=== PATIENT | male | born 1930 | race Caucasian/White ===

== ENCOUNTER 2017-01-28 12:33 | Day surgery (SDC) | payer MEDICARE, BC ==
[~2017-01-28] VITALS: Ht 179.1 cm; Wt 80.8 kg
[~2017-01-28 12:33] MED LIST: ANTIVERT 25MG25 MG PO; ASPIR-LOW81 MG PO; ASPIRIN 81M81 MG/TA2 PO; ASPIRIN E.C. 8181 MG PO; B COMPLEX1 TA4 PO; CALCIUM + D 6001 TA1 PO; CALTRATE-600 W600 MG PO; CENTRUM SILVER1 TA1 PO; CENTRUM1 TAB PO; COLACE 100100 MG/CAP PO; FISH OIL CONC1000 MG PO; FLOMAX 0.40.4 MG/CAP PO; GLUCOSAMINE/CHONDROI PO; INDERAL 10MG10 MG PO; LEVAQUIN 5500 MG/TAB PO; LIPITOR20 MG PO; LOPRESSOR 225 MG/TAB PO; NATURAL POTASS595 MG PO; NEURONTIN300 MG/CAP PO; NITROSTAT0.4 MG/TAB SL; NORCO 325 MG-51 TAB PO; OMEGA 31000 MG PO; PEPCID 20MG TAB20 MG PO; PHENERGAN 25 TA25 MG PO; PHENERGAN25 MG RC; PLAVIX 75MG TAB75 MG PO; POTASSIUM75 MG PO; RESTORIL30 MG PO; SENOKOT8.6 MG PO; ST. JOSEPH81 M2 PO; TEMAZEPAM30 MG PO; TOPROL XL 25MG25 MG PO; TYLENOL 500MG500 MG PO; TYLENOL EXTRA500 M1 PO; VEGETABLE LAXAT1 TAB PO; VITAMIN C500 MG PO; VITAMIN D PO; VITAMIN D1000 IU PO; VITAMIN D31000 IU PO; VITAMIN E-400200 IU PO; VITAMIN E1000 U/CAP PO
[2017-01-28 13:35] VITALS: BP 148/74; PULSE 67; TEMP 97.3
[2017-01-28] MEDS ORDERED: ASPIRIN 81M81 MG/TA2 PO (13:46)
[2017-01-28] MEDS ORDERED: STRESS FORMULA1 TA1 (13:47)
[2017-01-28] MEDS ORDERED: TOPROL XL 25MG25 MG PO (13:48)
[2017-01-28] MEDS ORDERED: PROTANDUM PO (13:50)
[2017-01-28] MEDS ORDERED: LIPITOR20 MG PO (13:53)
[2017-01-28] MEDS ORDERED: PERI-COLACE 501 TAB PO (13:54)
[2017-01-28 14:26] VITALS: BP 102/50; PULSE 76; TEMP 98.8
[2017-01-28] MEDS ORDERED: NORCO 325 MG-51 TAB PO (14:34)
[2017-01-28 14:45] VITALS: BP 118/58; PULSE 72
[2017-01-28 15:00] VITALS: BP 121/47; PULSE 82
== END 2017-01-28 16:00 | disposition home or self-care (01) ==
LOC: SDCO 12:33
DX: C44.529 Squamous cell carcinoma of skin of other part of trunk (principal)
CPT/HCPCS: J2704; J3010; J7120

== ENCOUNTER 2017-04-06 08:00 | Outpatient (RCR) | payer MEDICARE, BC ==
[~2017-04-06 08:00] MED LIST changes: +PERI-COLACE 501 TAB PO; +PROTANDUM PO; +STRESS FORMULA1 TA1
== END 2017-04-06 10:13 | disposition home or self-care (01) ==
LOC: WSPT 08:00
DX: M25.561 Pain in right knee (principal); M25.562 Pain in left knee
CPT/HCPCS: G8978-GP; G8979-GP; G8980-GP

== ENCOUNTER → 2017-05-05 | Outpatient (CLI) | payer MEDICARE, BC ==
[~2017-05-05] MED LIST changes: +NEW BP MED; +[UNRECOGNIZED DRUG - REMARK]
[2017-05-05 17:26] LABS: HEMATOCRIT 44.2 % (42.0-52.0); HEMOGLOBIN 13.7 g/dl (13.5-18.0); MEAN CELL VOLUME 87 fl (80.0-100.0); MEAN CORPUSCULAR HEMOGLOBIN 27 pg (27.0-31.0); MEAN CORPUSCULAR HGB CONC 31 g/dl (33.0-37.0); PLATELET COUNT 197 K/mm3 (130-400); RED BLOOD COUNT 5.09 M/mm3 (4.20-5.60); REDCELL DISTRIBUTION WIDTH-CV 14.2 % (11.5-14.5); WHITE BLOOD COUNT 5.9 K/mm3 (4.8-10.8)
[2017-05-05 17:45] LABS: ERYTHROCYTE SEDIMENTATION RATE 1 mm/hr (0-30)
== END ==
LOC: COL.LAB 16:35
PROVIDERS: Orthopaedic Surgery
DX: Z96.651 Presence of right artificial knee joint (principal)

== ENCOUNTER 2017-06-12 15:53 | Emergency (ER) | payer MEDICARE, BC ==
[~2017-06-12] VITALS: Ht 180.3 cm; Wt 81.8 kg
[~2017-06-12 15:53] MED LIST changes: -NEW BP MED; -[UNRECOGNIZED DRUG - REMARK]
[2017-06-12 15:57] VITALS: TEMP 97.9
[2017-06-12] MEDS ORDERED: NEW BP MED (16:24)
[2017-06-12] MEDS ORDERED: [UNRECOGNIZED DRUG - REMARK] (16:52)
[2017-06-12 16:58] LABS: CALCIUM 9.1 mg/dL (8.4-10.2); CREATININE, serum 0.95 mg/dL (0.66-1.25); POTASSIUM 4.1 mmol/L (3.4-5.0)
[2017-06-12 18:02] VITALS: BP 108/56; PULSE 78
== END 2017-06-12 18:04 | disposition home or self-care (01) ==
LOC: COL.ER 15:53
PROVIDERS: Emergency Medicine
DX: R53.1 Weakness (principal); I10 Essential (primary) hypertension; R42 Dizziness and giddiness
CPT/HCPCS: J7040

== ENCOUNTER → 2017-07-01 | Outpatient (CLI) | payer MEDICARE, BC ==
[~2017-07-01] MED LIST changes: +NEW BP MED; +[UNRECOGNIZED DRUG - REMARK]
== END ==
LOC: COL.VAS 14:19
DX: R59.0 Localized enlarged lymph nodes (principal); R60.0 Localized edema

== ENCOUNTER → 2017-09-16 | Outpatient (CLI) | payer MEDICARE, BC | LOC: COL.RAD 15:19 | DX: S09.90XA Unspecified injury of head, initial encounter (principal); H53.8 Other visual disturbances; R41.840 Attention and concentration deficit ==

== ENCOUNTER 2017-10-04 08:17 | Emergency (ER) | payer MEDICARE, BC ==
[~2017-10-04] VITALS: Ht 177.8 cm; Wt 81.8 kg
[2017-10-04] MEDS ORDERED: MYRBETR25MG PO (09:18)
[2017-10-04] MEDS ORDERED: PRINIVIL2.5 MG PO (09:18)
[2017-10-04 09:50] VITALS: BP 135/72; PULSE 64; TEMP 98.6
== END 2017-10-04 10:02 | disposition home or self-care (01) ==
LOC: COL.ER 08:17
DX: S86.912A Strain of unspecified muscle(s) and tendon(s) at lower leg level, left leg, initial encounter (principal); I10 Essential (primary) hypertension; E78.5 Hyperlipidemia, unspecified; N40.0 Benign prostatic hyperplasia without lower urinary tract symptoms; Z79.82 Long term (current) use of aspirin; W18.40XA Slipping, tripping and stumbling without falling, unspecified, initial encounter; Y92.481 Parking lot as the place of occurrence of the external cause

== ENCOUNTER 2018-04-01 11:15 | Outpatient (RCR) | payer MEDICARE, BC ==
[~2018-04-01 11:15] MED LIST changes: +MYRBETR25MG PO; +PRINIVIL2.5 MG PO
== END 2018-04-03 | disposition home or self-care (01) ==
LOC: WSPT
DX: M19.90 Unspecified osteoarthritis, unspecified site (principal)
CPT/HCPCS: G8978-GP; G8979-GP

== ENCOUNTER 2018-04-30 19:33 | Emergency (ER) | payer MEDICARE, BC ==
[~2018-04-30] VITALS: Ht 177.8 cm; Wt 79.5 kg
[2018-04-30 19:35] VITALS: BP 136/71; PULSE 82; TEMP 98.1
== END 2018-04-30 20:30 | disposition home or self-care (01) ==
LOC: COL.ER 19:33
DX: H61.23 Impacted cerumen, bilateral (principal)

== ENCOUNTER 2018-05-15 22:37 | Emergency (ER) | payer MEDICARE, BC ==
[~2018-05-15] VITALS: Ht 177.8 cm; Wt 79.5 kg
[2018-05-15 22:42] VITALS: TEMP 97.8
[2018-05-15 23:33] LABS: BASO % 0.5 % (0.0-2.0); EOS # 0.3 (0.0-0.7); EOS % 4.5 % (0-4.0); GRAN # 3.3 (1.4-6.5); GRAN % 52.4 % (42.2-75.2); HEMATOCRIT 42.5 % (42.0-52.0); HEMOGLOBIN 13.3 g/dl (13.5-18.0); LYMPH # 1.7 (1.2-3.4); LYMPH % 26.6 % (20.0-51.0); MEAN CELL VOLUME 85 fl (80.0-100.0); MEAN CORPUSCULAR HEMOGLOBIN 27 pg (27.0-31.0); MEAN CORPUSCULAR HGB CONC 31 g/dl (33.0-37.0); MEAN PLATELET VOLUME 10.8 fl (7.4-10.4); MONO % 15.5 % (1.7-9.3); PLATELET COUNT 214 K/mm3 (130-400); RED BLOOD COUNT 4.99 M/mm3 (4.20-5.60); REDCELL DISTRIBUTION WIDTH-CV 13.8 % (11.5-14.5)
[2018-05-15 23:39] LABS: INR 1.1 (0.8-3.0)
[2018-05-16 00:05] LABS: ALANINE AMINOTRANSFERASE 28 U/L (21-72); ALBUMIN 3.5 gm/dL (3.5-5.0); ALKALINE PHOSPHATASE 98 U/L (50-136); ANION GAP 10 mmol/L (7-16); AST,SGOT 32 U/L (15-37); BILIRUBIN,TOTAL 0.6 mg/dL (0.0-1.0); BLOOD UREA NITROGEN 19 mg/dL (9-20); CALCIUM 8.9 mg/dL (8.4-10.2); CARBON DIOXIDE 26 mmol/L (22-30); CHLORIDE 102 mmol/L (98-107); CREATININE, serum 0.88 mg/dL (0.66-1.25); GLUCOSE 87 mg/dL (74-106); POTASSIUM 4.1 mmol/L (3.4-5.0); SODIUM 139 mmol/L (137-145); TOTAL PROTEIN 6.7 gm/dL (6.4-8.2)
[2018-05-16 00:17] LABS: TROPONIN-I < 0.012 ng/mL (0.000-0.034)
[2018-05-16 01:09] VITALS: BP 123/60; PULSE 67
== END 2018-05-16 01:20 | disposition home or self-care (01) ==
LOC: COL.ER 22:37
PROVIDERS: Emergency Medicine
DX: R42 Dizziness and giddiness (principal); I10 Essential (primary) hypertension; I48.91 Unspecified atrial fibrillation; E78.5 Hyperlipidemia, unspecified; N40.0 Benign prostatic hyperplasia without lower urinary tract symptoms; Z98.890 Other specified postprocedural states; Z79.82 Long term (current) use of aspirin

== ENCOUNTER → 2018-05-24 | Outpatient (CLI) | payer MEDICARE, BC | LOC: COL.RAD 08:14 | DX: G31.89 Other specified degenerative diseases of nervous system (principal) | CPT/HCPCS: A9585 ==

== ENCOUNTER 2018-06-03 09:45 | Outpatient (RCR) | payer MEDICARE, BC | END 2018-07-10 | disposition home or self-care (01) | LOC: WSPT | DX: R29.898 Other symptoms and signs involving the musculoskeletal system (principal); R27.0 Ataxia, unspecified | CPT/HCPCS: G8978-GP; G8979-GP ==

== ENCOUNTER → 2018-09-16 | Outpatient (CLI) | payer MEDICARE, BC ==
[2018-09-16 10:21] LABS: HEMATOCRIT 42.5 % (42.0-52.0); HEMOGLOBIN 13.3 g/dl (13.5-18.0); MEAN CELL VOLUME 88 fl (80.0-100.0); MEAN CORPUSCULAR HEMOGLOBIN 27 pg (27.0-31.0); MEAN CORPUSCULAR HGB CONC 31 g/dl (33.0-37.0); MEAN PLATELET VOLUME 10.6 fl (7.4-10.4); PLATELET COUNT 181 K/mm3 (130-400); RED BLOOD COUNT 4.85 M/mm3 (4.20-5.60); REDCELL DISTRIBUTION WIDTH-CV 13.2 % (11.5-14.5)
[2018-09-16 10:29] LABS: INR 1.2 (0.8-3.0); PROTHROMBIN TIME 13.5 SECONDS (9.7-12.8)
[2018-09-16 10:37] LABS: CALCIUM 8.6 mg/dL (8.4-10.2); CREATININE, serum 0.75 mg/dL (0.66-1.25); POTASSIUM 4.5 mmol/L (3.4-5.0)
== END ==
LOC: COL.LAB 09:40
PROVIDERS: Internal Medicine Interventional Cardiology
DX: I49.5 Sick sinus syndrome (principal)

== ENCOUNTER → 2018-09-21 | Outpatient (CLI) | payer MEDICARE, BC | LOC: COL.RAD 09:58 | DX: J98.6 Disorders of diaphragm (principal); Z95.0 Presence of cardiac pacemaker ==

== ENCOUNTER → 2018-11-08 | Outpatient (CLI) | payer MEDICARE, BC | LOC: COL.RAD 13:22 | DX: J84.10 Pulmonary fibrosis, unspecified (principal); M46.94 Unspecified inflammatory spondylopathy, thoracic region; J98.6 Disorders of diaphragm; Z95.0 Presence of cardiac pacemaker | CPT/HCPCS: Q9967 ==

== ENCOUNTER 2019-03-22 11:14 | Outpatient (RCR) | payer MEDICARE, BC | END 2019-06-08 15:09 | disposition home or self-care (01) | LOC: MKS.ESL.PT 11:14 | DX: M25.561 Pain in right knee (principal); M25.562 Pain in left knee; Z96.651 Presence of right artificial knee joint ==

== ENCOUNTER → 2019-04-28 | Outpatient (CLI) | payer MEDICARE, BC | LOC: COL.RAD 07:58 | DX: S76.012A Strain of muscle, fascia and tendon of left hip, initial encounter (principal) ==

== ENCOUNTER 2019-06-23 18:54 | Emergency (ER) | payer MEDICARE, BC ==
[~2019-06-23] VITALS: Ht 177.8 cm; Wt 79.5 kg
[2019-06-23 18:59] VITALS: TEMP 97.5
[2019-06-23 19:19] LABS: BASO % 0.4 % (0.0-2.0); EOS # 0.3 (0.0-0.7); EOS % 3.9 % (0-4.0); GRAN # 4.4 (1.4-6.5); GRAN % 63.1 % (42.2-75.2); HEMATOCRIT 42.3 % (42.0-52.0); LYMPH # 1.4 (1.2-3.4); LYMPH % 20.4 % (20.0-51.0); MEAN CELL VOLUME 87 fl (80.0-100.0); MEAN CORPUSCULAR HEMOGLOBIN 27 pg (27.0-31.0); MEAN CORPUSCULAR HGB CONC 31 g/dl (33.0-37.0); MEAN PLATELET VOLUME 11.1 fl (7.4-10.4); MONO # 0.8 (0.1-0.6); MONO % 12.1 % (1.7-9.3); PLATELET COUNT 178 K/mm3 (130-400); RED BLOOD COUNT 4.88 M/mm3 (4.20-5.60); REDCELL DISTRIBUTION WIDTH-CV 13.3 % (11.5-14.5)
[2019-06-23 19:34] LABS: ALANINE AMINOTRANSFERASE 20 U/L (21-72); ALBUMIN 3.9 gm/dL (3.5-5.0); ALKALINE PHOSPHATASE 102 U/L (50-136); ANION GAP 8 mmol/L (7-16); AST,SGOT 34 U/L (15-37); BILIRUBIN,TOTAL 0.8 mg/dL (0.0-1.0); BLOOD UREA NITROGEN 14 mg/dL (9-20); CARBON DIOXIDE 29 mmol/L (22-30); CHLORIDE 105 mmol/L (98-107); GLUCOSE 91 mg/dL (74-106); POTASSIUM 4.2 mmol/L (3.4-5.0); SODIUM 141 mmol/L (137-145); TOTAL PROTEIN 6.9 gm/dL (6.4-8.2)
[2019-06-23 19:37] LABS: C-REACTIVE PROTEIN 0.5 mg/dL (0.0-0.9)
[2019-06-23 19:43] LABS: TROPONIN-I < 0.012 ng/mL (0.000-0.035)
[2019-06-23 20:48] LABS: COLLECTION METHOD CLEAN CATCH
[2019-06-23 21:04] LABS: MUCOUS Present /lpf; PH 5 (5-8); SQUAMOUS EPITHELIAL None Seen /hpf; URINE APPEARANCE Hazy; URINE BACTERIA None Seen /hpf; URINE BILIRUBIN Negative (NEGATIVE); URINE BLOOD Negative (NEGATIVE); URINE COLOR Yellow; URINE GLUCOSE Negative (NEGATIVE); URINE KETONE Negative (NEGATIVE); URINE LEUKOCYTE ESTERASE Negative (NEGATIVE); URINE NITRATE Negative (NEGATIVE); URINE PROTEIN(semi-quant) Negative (NEGATIVE); URINE RBC 0-2 /hpf; URINE UROBILINOGEN Negative (NEGATIVE)
[2019-06-23 21:23] VITALS: BP 151/87; PULSE 85
== END 2019-06-23 21:21 | disposition home or self-care (01) ==
LOC: COL.ER 18:54
PROVIDERS: Emergency Medicine
DX: R53.1 Weakness (principal); R42 Dizziness and giddiness; I48.91 Unspecified atrial fibrillation; I10 Essential (primary) hypertension; E78.00 Pure hypercholesterolemia, unspecified; Z95.0 Presence of cardiac pacemaker; Z79.01 Long term (current) use of anticoagulants; Z79.82 Long term (current) use of aspirin
CPT/HCPCS: J7030

== ENCOUNTER 2019-11-17 20:37 | Emergency (ER) | payer MEDICARE, BC ==
[~2019-11-17] VITALS: Ht 177.8 cm; Wt 78.6 kg
[2019-11-17 22:28] LABS: BASO % 0.3 % (0.0-2.0); EOS # 0.1 (0.0-0.7); EOS % 0.9 % (0-4.0); GRAN # 7.2 (1.4-6.5); GRAN % 73.8 % (42.2-75.2); HEMATOCRIT 41.3 % (42.0-52.0); HEMOGLOBIN 12.6 g/dl (13.5-18.0); LYMPH # 0.9 (1.2-3.4); LYMPH % 9.4 % (20.0-51.0); MEAN CELL VOLUME 87 fl (80.0-100.0); MEAN CORPUSCULAR HEMOGLOBIN 27 pg (27.0-31.0); MEAN CORPUSCULAR HGB CONC 31 g/dl (33.0-37.0); MEAN PLATELET VOLUME 10.4 fl (7.4-10.4); MONO # 1.5 (0.1-0.6); MONO % 15.3 % (1.7-9.3); PLATELET COUNT 225 K/mm3 (130-400); RED BLOOD COUNT 4.73 M/mm3 (4.20-5.60); REDCELL DISTRIBUTION WIDTH-CV 13.2 % (11.5-14.5)
[2019-11-17 22:36] LABS: ALBUMIN 3.9 gm/dL (3.5-5.0); BILIRUBIN,TOTAL 0.7 mg/dL (0.0-1.0); CALCIUM 8.9 mg/dL (8.4-10.2); CREATININE, serum 0.99 (0.66-1.25); POTASSIUM 4.4 mmol/L (3.4-5.0); TOTAL PROTEIN 7.2 gm/dL (6.4-8.2)
[2019-11-17 22:48] LABS: C-REACTIVE PROTEIN 16.9 mg/dL (0.0-0.9)
[2019-11-18 02:14] LABS: COLLECTION METHOD CLEAN CATCH
[2019-11-18 02:19] LABS: MUCOUS Present /lpf; PH 5 (5-8); SQUAMOUS EPITHELIAL None Seen /hpf; URINE APPEARANCE Clear; URINE BACTERIA None Seen /hpf; URINE BILIRUBIN Negative (NEGATIVE); URINE BLOOD Negative (NEGATIVE); URINE COLOR Yellow; URINE GLUCOSE Negative (NEGATIVE); URINE KETONE Trace (NEGATIVE); URINE LEUKOCYTE ESTERASE Negative (NEGATIVE); URINE NITRATE Negative (NEGATIVE); URINE PROTEIN(semi-quant) Negative (NEGATIVE); URINE RBC 0-2 /hpf; URINE UROBILINOGEN Negative (NEGATIVE)
[2019-11-18 02:30] VITALS: BP 100/56; PULSE 84; TEMP 97.6
[2019-11-18] MEDS ORDERED: TESSALON P100 MG/CAP PO (02:34)
== END 2019-11-18 02:30 | disposition home or self-care (01) ==
LOC: COL.ER 20:37
PROVIDERS: Physician Assistant
DX: J11.1 Influenza due to unidentified influenza virus with other respiratory manifestations (principal); I10 Essential (primary) hypertension; E78.5 Hyperlipidemia, unspecified; I25.10 Atherosclerotic heart disease of native coronary artery without angina pectoris; Z79.82 Long term (current) use of aspirin; Z86.73 Personal history of transient ischemic attack (TIA), and cerebral infarction without residual deficits; Z95.0 Presence of cardiac pacemaker; Z96.651 Presence of right artificial knee joint
CPT/HCPCS: J7030

== ENCOUNTER 2020-05-01 09:52 | Outpatient (RCR) | payer MEDICARE, BC ==
[~2020-05-01 09:52] MED LIST changes: +TESSALON P100 MG/CAP PO
== END 2020-07-30 ==
LOC: WSPT
DX: M25.561 Pain in right knee (principal); M25.562 Pain in left knee

== ENCOUNTER 2020-08-22 07:08 | Inpatient (IN) | payer MEDICARE, BC ==
[~2020-08-22] VITALS: Ht 180.3 cm; Wt 87.2 kg
[2020-08-22 07:38] LABS: BASO % 0.2 % (0.0-2.0); EOS # 0.1 (0.0-0.7); EOS % 0.7 % (0-4.0); GRAN # 14.2 (1.4-6.5); GRAN % 83.8 % (42.2-75.2); HEMATOCRIT 44.6 % (42.0-52.0); HEMOGLOBIN 13.4 g/dl (13.5-18.0); LYMPH # 1.2 (1.2-3.4); LYMPH % 6.9 % (20.0-51.0); MEAN CELL VOLUME 85 fl (80.0-100.0); MEAN CORPUSCULAR HEMOGLOBIN 26 pg (27.0-31.0); MEAN CORPUSCULAR HGB CONC 30 g/dl (33.0-37.0); MEAN PLATELET VOLUME 10.2 fl (7.4-10.4); MONO # 1.3 (0.1-0.6); MONO % 7.9 % (1.7-9.3); PLATELET COUNT 242 K/mm3 (130-400); RED BLOOD COUNT 5.25 M/mm3 (4.20-5.60)
[2020-08-22 08:20] LABS: ALANINE AMINOTRANSFERASE 20 U/L (4-49); ALBUMIN 4.3 gm/dL (3.5-5.0); ALKALINE PHOSPHATASE 114 U/L (50-136); ANION GAP 10 mmol/L (7-16); AST,SGOT 63 U/L (15-37); BILIRUBIN,TOTAL 1.1 mg/dL (0.0-1.0); BLOOD UREA NITROGEN 19 mg/dL (9-20); C-REACTIVE PROTEIN 0.8 mg/dL (0.0-0.9); CALCIUM 9.4 mg/dL (8.4-10.2); CARBON DIOXIDE 29 mmol/L (22-30); CHLORIDE 101 mmol/L (98-107); CREATININE, serum 1.05 (0.66-1.25); GLUCOSE 164 mg/dL (74-106); POTASSIUM 4.2 mmol/L (3.4-5.0); SODIUM 140 mmol/L (137-145); TOTAL PROTEIN 7.5 gm/dL (6.4-8.2)
[2020-08-22 08:30] LABS: TROPONIN-I < 0.012 ng/mL (0.000-0.035)
[2020-08-22 12:08] VITALS: BP 162/86; PULSE 78; TEMP 97.8
--- NOTE | 2020-08-22 12:11 | NUR ---
Patient up to room 347 by jorge, ambulated to bed with x 1 assist. Oriented to room. Denies further needs at this time. Assessment complete.
--- NOTE | 2020-08-22 14:50 | NUR ---
Manager Maritime met with patient to discuss discharge planning. Patient lives alone in [place] and sees Dr. Vivas for primary care. Patient has medications mailed to his home by the [facility] and also utilizes [facility] pharmacy as needed. Patient has a cane and walker at home but reports he doesn't normally use those. Patient has [facility] located [facility] which designates his brother Volodymyr (ph#[phone]), his daughter Carmencita Kirby (ph#[phone]) and his other daughter, Maxine (ph#[phone]). Patient is normally independent with ADLS and plans to return home at discharge. SW will continue to follow as needed.
[2020-08-22] MEDS ORDERED: RESTORIL30 MG PO (15:36)
[2020-08-22] MEDS ORDERED: SENOKOT8.6 MG PO (15:37)
[2020-08-22] MEDS ORDERED: ELIQUIS 5MG PO (15:38)
[2020-08-22] MEDS ORDERED: TYLENOL 500MG500 MG PO (15:39)
[2020-08-22] MEDS ORDERED: VITAMINC1000TA (15:39)
[2020-08-22] MEDS ORDERED: PACERONE100 MG PO (15:40)
[2020-08-22 16:02] VITALS: BP 138/62; PULSE 83; TEMP 97.8
--- NOTE | 2020-08-22 18:07 | NUR ---
Patient doing well this afternoon. Has requested pain medication for abd pain, medications given per orders. Dr. Arroyo in to see patient this afternoon. Assisted patient to recliner, x 1 assist. Patient states he feels weak when getting up out of bed. Fluids continue infusing per orders. Denies further needs at this time. Will report off to rehab tech.
[2020-08-22 19:42] VITALS: BP 154/70; PULSE 83; TEMP 98.7
--- NOTE | 2020-08-22 21:00 | NUR ---
Resting in bed. Assessment complete. Bases diminshed bilaterally otherwise clear. Heart sounds normal. Bowels active x4. Pulses present throughout. No edema noted. IV left AC infusing without complications. Reports 05/31 ABD pain. Provided with PRN morphine. Denies other needs. Call light in reach. Respiratory started on 2 liters nasal cannula for saturations high 80s after ambulation.
--- NOTE | 2020-08-22 23:41 | NUR ---
Resting in bed. Reported 7/10 ABD pain. Given PRN morphine. Denies needs. Call light in reach.
[2020-08-22 23:51] VITALS: BP 152/67; PULSE 83; TEMP 98.5
--- NOTE | 2020-08-23 01:59 | NUR ---
Patient asleep in bed with no signs of discomfort. Will assess pain once awake.
--- NOTE | 2020-08-23 02:50 | NUR ---
Patient incontinent of urine. Cares provided. Reported nausea and ABD pain 4/10. Given PRN morphine and zofran. Denies other needs. Will monitor.
[2020-08-23 04:00] VITALS: BP 130/59; PULSE 85; TEMP 98.5
--- NOTE | 2020-08-23 04:57 | NUR ---
Resting in bed. Denies needs. Call light in reach.
--- NOTE | 2020-08-23 06:13 | NUR ---
Patient required x3 doses of morphine and x1 dose of zofran with schedule tylenol for pain control. Otherwise uneventful night. Resting in bed this AM. Call light in reach.
--- NOTE | 2020-08-23 06:43 | NUR ---
Report given to ALEXIA Diaz
[2020-08-23 07:15] LABS: HEMATOCRIT 44.4 % (42.0-52.0); HEMOGLOBIN 13.5 g/dl (13.5-18.0); MEAN CELL VOLUME 84 fl (80.0-100.0); MEAN CORPUSCULAR HEMOGLOBIN 26 pg (27.0-31.0); MEAN CORPUSCULAR HGB CONC 30 g/dl (33.0-37.0); MEAN PLATELET VOLUME 11.2 fl (7.4-10.4); PLATELET COUNT 221 K/mm3 (130-400); RED BLOOD COUNT 5.26 M/mm3 (4.20-5.60); REDCELL DISTRIBUTION WIDTH-CV 14.5 % (11.5-14.5)
[2020-08-23 07:21] LABS: ALBUMIN 3.6 gm/dL (3.5-5.0); CALCIUM 8.7 mg/dL (8.4-10.2); CREATININE, serum 1.01 (0.66-1.25); POTASSIUM 4.4 mmol/L (3.4-5.0); TOTAL PROTEIN 6.4 gm/dL (6.4-8.2)
[2020-08-23 07:31] VITALS: BP 128/58; PULSE 65; TEMP 98.8
--- NOTE | 2020-08-23 07:50 | NUR ---
Notified hospitalist of increased WBC.
[2020-08-23 07:54] LABS: BAND 15 % (0-10); LYMPHOCYTE 2 % (20.0-51.0); NEUTROPHILS 78 % (42.0-75.2); PLATELET ESTIMATE NORMAL (NORMAL); SCHISTOCYTES 1+
--- NOTE | 2020-08-23 07:59 | NUR ---
Patient in bed. Appears flushed, requested pain medicine for abd pain 03/31, medications given per orders. Alert and oriented x 3. Assessment complete. SCDs to BLE. Patient states he feels better than he did yesterday. Rechecked temp at 98.1. Patient denies further needs at this time. Will continue to monitor.
--- NOTE | 2020-08-23 08:49 | NUR ---
Radiology in for abd US.
--- NOTE | 2020-08-23 10:17 | NUR ---
Dr. Barcenas and care team in to see patient.
--- NOTE | 2020-08-23 10:56 | NUR ---
Henna LARA student in to see patient, provided with boone and maurisio garcia
[2020-08-23 12:00] VITALS: BP 121/55; PULSE 73; TEMP 98.4
--- NOTE | 2020-08-23 15:48 | NUR ---
Patient up to recliner, denies pain at this time. Denies further needs at this time.
[2020-08-23 16:24] VITALS: BP 130/64; PULSE 85; TEMP 98
--- NOTE | 2020-08-23 18:11 | NUR ---
Patient has done well throughout the day, states he feels weak today. Bother at bedside this afternoon. Fluids continue infusing per orders. Has been up to recliner this afternoon, encouraged patient to increase activity. Denies pain when sitting up in recliner. Denies further needs at this time. Will report off to roll plugger machine operator.
--- NOTE | 2020-08-23 19:00 | NUR ---
Received report from Keri RN's. Pt currently lying in bed. Pt was having some pain but was given pain medication. Pt has his call light within reach and his bed is in lowest position.
[2020-08-23 20:00] VITALS: BP 134/63; PULSE 83; TEMP 98
[2020-08-24] VITALS (9 sets, daily range): BP systolic 105–134; BP diastolic 47–89; PULSE 75–107; TEMP 97.8–98.3
--- NOTE | 2020-08-24 04:49 | NUR ---
Received a call from Telemetry. Pt heart rate was as high as 154. Pt was sleeping in bed. Pt vitals at this time is 111/67 and his heart rate is 139. Geovanna the hospitalist has been notified and she wants an EKG ordered at this time. Pt is currently resting in bed and has his call light within reach. I am currently at pt bed side he has no complaints of pain or discomfort at this time.
--- NOTE | 2020-08-24 05:58 | NUR ---
ICU Nurse Kelley currently in with pt. Pt vitals are being monitored and Geovanna the hospitalist has been notified.
--- NOTE | 2020-08-24 06:23 | NUR ---
Pt was given his scheduled dose of Tylenol and his Lopresor. Pt is currently resting in bed. Pt has no complaints of chest pain, dizziness or pain. Pt was given a warm blanket, pt stated that he is very comfortable in bed. ICU nurse Kelley was able to get his heart reate in the low 100's. Pt was pleased with knowing that his heart rate was lower.
[2020-08-24 09:09] LABS: BASO % 0.2 % (0.0-2.0); EOS % 0.1 % (0-4.0); GRAN # 19.3 (1.4-6.5); GRAN % 89.6 % (42.2-75.2); HEMATOCRIT 42.2 % (42.0-52.0); LYMPH # 0.6 (1.2-3.4); LYMPH % 2.7 % (20.0-51.0); MEAN CELL VOLUME 85 fl (80.0-100.0); MEAN CORPUSCULAR HEMOGLOBIN 26 pg (27.0-31.0); MEAN CORPUSCULAR HGB CONC 31 g/dl (33.0-37.0); MEAN PLATELET VOLUME 11.7 fl (7.4-10.4); MONO # 1.5 (0.1-0.6); MONO % 6.8 % (1.7-9.3); PLATELET COUNT 190 K/mm3 (130-400); RED BLOOD COUNT 4.95 M/mm3 (4.20-5.60); REDCELL DISTRIBUTION WIDTH-CV 14.7 % (11.5-14.5)
[2020-08-24 09:21] LABS: ALBUMIN 3.2 gm/dL (3.5-5.0); CALCIUM 8.5 mg/dL (8.4-10.2); CREATININE, serum 0.9 (0.66-1.25); POTASSIUM 4.1 mmol/L (3.4-5.0); TOTAL PROTEIN 5.9 gm/dL (6.4-8.2)
--- NOTE | 2020-08-24 10:14 | NUR ---
Assessment completed, alert/oriented, vital signs stable, reports pain is improved and mild this morning, abdomen is a little distended, BS+, heart irregular/ patient went into A.fib RVR overnight, Hospitalist managed medically and consulted cardiology, HR 100-130 this morning and they are aware of this, patient is asymptomatic at [facility], WBC imrpoving, plan of care discussed with Patient/family/hospitalist/SX and Cardiology
--- NOTE | 2020-08-24 19:10 | NUR ---
Received report from Neil. Seen patient awake, lying in bed. With O2 at 1lpm via NC. With IV on left AC infusing D5LR at 75ml/hr. He denies pain. He is alert and oriented. Heart rate now was at 80's. Call light within reach.
--- NOTE | 2020-08-24 20:54 | NUR ---
Informed patient that Dr. Arroyo ordered NPO midnight. He's asking if he will have the procedure tomorrow. Informed him that there are no orders yet and maybe they will see how he goes well tonight and they will decide on in the morning. Patient verbalizes understanding. He denies pain. He states his pain was at 1/10.
--- NOTE | 2020-08-24 23:00 | NUR ---
Razia BHATT called this nurse saying that the patient had an unwitnessed fall. Upon entering his room patient was sitting on the floor on the right side of the bed. Patient states he was trying to go the the restroom. His urinal was on the bedside. He denies hitting his head. He is alert and oriented. Noted to have small abrasion on his right hand. Placed gaitbelt and helped patient stand up and get back to bed. His pants and briefs are wet. He refuses to put back a new briefs but we changed his pants.
--- NOTE | 2020-08-24 23:44 | NUR ---
Post fall vital signs were taken. Informed Geovanna BERNARD via phone call that patient had unwitnessed fall and that he denies hitting his bed. Fall protocol initiated. Bed alarm was placed awhile ago. Instructed patient he needs to call us if he needs to go up and go to the bathroom.
[2020-08-25] VITALS (12 sets, daily range): BP systolic 89–166; BP diastolic 50–91; PULSE 72–90; TEMP 97.7–98.6
--- NOTE | 2020-08-25 05:51 | NUR ---
Patient had no episode of Tachycardia overnight. He denies pain. Maintained on NPO. Bed alarm on. Call light within reach.
[2020-08-25 06:44] LABS: HEMOGLOBIN 11.7 g/dl (13.5-18.0); MEAN CELL VOLUME 85 fl (80.0-100.0); MEAN CORPUSCULAR HEMOGLOBIN 26 pg (27.0-31.0); MEAN CORPUSCULAR HGB CONC 31 g/dl (33.0-37.0); MEAN PLATELET VOLUME 11.3 fl (7.4-10.4); PLATELET COUNT 169 K/mm3 (130-400); RED BLOOD COUNT 4.49 M/mm3 (4.20-5.60); REDCELL DISTRIBUTION WIDTH-CV 14.6 % (11.5-14.5)
[2020-08-25 06:58] LABS: CALCIUM 8.4 mg/dL (8.4-10.2); CREATININE, serum 0.86 (0.66-1.25); POTASSIUM 3.7 mmol/L (3.4-5.0)
--- NOTE | 2020-08-25 09:28 | NUR ---
PATIENT SITTING UP IN THE CHAIR. THERAPY PRESENT IN THE ROOM. PO MEDICATIONS GIVEN AT THIS TIME. IV ABX INFUSING. PATIENT CONSENT FORM FOR SURGERY SIGNED AND PLACED ON PATIENT CHART. PATIENT GIVEN FLU VACCINE INFORMATION SHEET TO REVIEW. PATIENT REPORTS MILD ABDOMINAL DISCOMFORT. CALL LIGHT IN REACH. NO OTHER NEEDS AT THIS TIME.
[2020-08-25 10:29] LABS: BAND 1 % (0-10); EOSINOPHIL 2 % (0-4); LYMPHOCYTE 2 % (20.0-51.0); NEUTROPHILS 89 % (42.0-75.2); PLATELET ESTIMATE NORMAL (NORMAL)
--- NOTE | 2020-08-25 11:42 | NUR ---
PATIENT CONSENT FORM ON PATIENT CHART. PRE-OP MEDICATIONS GIVEN. LR HUNG TO GRAVITY FLOW TUBING AND INFUSING TO LEFT AC IV. PATIENT TAKEN TO PERIOP VIA BED BY ALEXIA BEAL. WILL WAIT FOR PATIENT ARRIVAL BACK TO ROOM 347 POST-OP.
--- NOTE | 2020-08-25 13:32 | NUR ---
Kelby received a call from patients nurse reporting that patient had been week, and is scheduled for surgery at 11 am. Nurse indicated that patients brother (who lives in [place]) wished to discuss Inpatient rehab options, as the patient currently lives alone and may need continued treatment after surgery. KELBY met with patient and patients brother Volodymyr [phone] to discuss options. Discussed IPR services, and KELBY took down information and contacted Dorene who scheduled an appointment to meet with beto bailey and his brother at 2:30. KELBY provider information to Volodymyr as his brother was in surgery.
--- NOTE | 2020-08-25 14:00 | NUR ---
PATIENT ARRIVED BACK TO ROOM 347 VIA BED FROM PACU. PATIENT IS DROWSY BUT AWAKE. POST-OP VSS. PATIENT DENIES ANY PAIN AT THIS TIME. ABDOMINAL LAP SITES X4 DRESSED WITH BANDAIDS AND ARE CD&I. SCD'S TO BLE. CALL LIGHT WITHIN REACH. BROTHER PRESENT AT THE BEDSIDE. PATIENT DENIES ANY OTHER NEEDS AT THIS TIME.
--- NOTE | 2020-08-25 18:55 | NUR ---
POST-OP VITALS COMPLETE. PATIENT IS EATING, DRINKING AND VOIDING. PATIENT REPORTS MILD ABDOMINAL DISCOMFORT AT THIS TIME. PATIENTS BLOOD PRESSURES ARE SOFT POST-OP. CALLED AND NOTIFIED THAT THE LAST BLOOD PRESSURE WAS 89/57 WITH THE DYNAMAP AND 96/50 WITH A MANUAL BLOOD PRESSURE CUFF. OKAY WITH THE PATIENTS BLOOD PRESSURES BEING IN THE 90'S. BEDSIDE REPORT GIVEN TO ALEXIA SOTO. CALL LIGHT IN REACH.
--- NOTE | 2020-08-25 20:00 | NUR ---
Report received, assumed care for recycling specialist. Assessment complete. VS stable. A&Ox3. Resting in bed watching TV. Lap sites x4 to abdomen-CDI. Denies pain/nausea/shortness of breath. Plan of care discussed for this shift to include HS meds/pain control/calling for needs. Verbalizes understanding. Call light in reach/bed alarm on. WIll monitor.
[2020-08-26] VITALS (8 sets, daily range): BP systolic 95–119; BP diastolic 47–62; PULSE 63–119; TEMP 97.8–98.6
[2020-08-26 07:09] LABS: MEAN CELL VOLUME 86 fl (80.0-100.0); MEAN CORPUSCULAR HGB CONC 31 g/dl (33.0-37.0); MEAN PLATELET VOLUME 11.5 fl (7.4-10.4); PLATELET COUNT 208 K/mm3 (130-400); RED BLOOD COUNT 3.34 M/mm3 (4.20-5.60); REDCELL DISTRIBUTION WIDTH-CV 14.5 % (11.5-14.5)
[2020-08-26 07:10] LABS: HEMATOCRIT 28.8 % (42.0-52.0); HEMOGLOBIN 8.8 g/dl (13.5-18.0); MEAN CORPUSCULAR HEMOGLOBIN 26 pg (27.0-31.0)
[2020-08-26 07:22] LABS: ALBUMIN 2.8 gm/dL (3.5-5.0); BILIRUBIN,TOTAL 0.9 mg/dL (0.0-1.0); CALCIUM 8.2 mg/dL (8.4-10.2); CREATININE, serum 1.59 (0.66-1.25); TOTAL PROTEIN 5.5 gm/dL (6.4-8.2)
[2020-08-26 07:38] LABS: BAND 4 % (0-10); LYMPHOCYTE 2 % (20.0-51.0); METAMYELOCYTE 2 % (0-0); NEUTROPHILS 91 % (42.0-75.2); PLATELET ESTIMATE NORMAL (NORMAL)
--- NOTE | 2020-08-26 08:40 | NUR ---
Patient in bed eating breakfast. Alert and oriented x 3. Denies pain at this time. SCDs to BLE. Lap sites x 5 with bandaids are CDI. Fluids infusing per orders to left AC IV. Denies further needs at this time.
--- NOTE | 2020-08-26 11:27 | NUR ---
Dr. Maguire in to see patient.
--- NOTE | 2020-08-26 12:13 | NUR ---
Patient sitting up in recliner eating lunch. denies pain or further needs at this time.
--- NOTE | 2020-08-26 13:38 | NUR ---
PT working with patient. Denies pain or further needs.
--- NOTE | 2020-08-26 14:12 | NUR ---
News Technical Director met with patient and patient's brother, Volodymyr to discuss discharge planning. Patient advised he would like to get to [facility] but that his second preference would be [facility]. KELBY contacted [facility] Director who continues to review referral. KELBY also faxed a referral to Leslee at [facility] and will continue to follow.
[2020-08-26 16:45] LABS: HEMATOCRIT 27.8 % (42.0-52.0); HEMOGLOBIN 8.5 g/dl (13.5-18.0)
--- NOTE | 2020-08-26 19:21 | NUR ---
Patient has done well throughout the day, has been up to recliner. Fluids continue infusing per order. Denies further needs at this time. Will report off to table games shift manager.
--- NOTE | 2020-08-26 21:45 | NUR ---
Pt. sitting up in bed at this time. Pt. is A&OX3, assessment complete. IV to lt. ac patent, IV fluids infusing per orders. Abd. lap sites x4 with bandaids. Pt. reports pain at a 5 on pain scale, gave pain meds per orders. Pt. denies further needs, call light within reach.
[2020-08-27 03:47] VITALS: BP 97/52; PULSE 76; TEMP 97.3
[2020-08-27 06:46] LABS: MEAN CELL VOLUME 85 fl (80.0-100.0); MEAN CORPUSCULAR HGB CONC 31 g/dl (33.0-37.0); MEAN PLATELET VOLUME 10.5 fl (7.4-10.4); PLATELET COUNT 190 K/mm3 (130-400); RED BLOOD COUNT 2.64 M/mm3 (4.20-5.60); REDCELL DISTRIBUTION WIDTH-CV 14.4 % (11.5-14.5)
[2020-08-27 06:48] LABS: HEMATOCRIT 22.3 % (42.0-52.0); MEAN CORPUSCULAR HEMOGLOBIN 26 pg (27.0-31.0)
[2020-08-27 06:50] LABS: HEMOGLOBIN 6.8 g/dl (13.5-18.0)
[2020-08-27 06:52] LABS: CALCIUM 7.9 mg/dL (8.4-10.2); CREATININE, serum 1.22 (0.66-1.25); POTASSIUM 3.9 mmol/L (3.4-5.0)
[2020-08-27 07:24] LABS: BAND 9 % (0-10); LYMPHOCYTE 6 % (20.0-51.0); NEUTROPHILS 80 % (42.0-75.2); PLATELET ESTIMATE NORMAL (NORMAL)
[2020-08-27 07:27] VITALS: BP 101/52; PULSE 127; TEMP 97.6
--- NOTE | 2020-08-27 07:39 | NUR ---
Notified Aixa LARA, patient HGB at 6.8, tachycardic at 120's. New orders entered, contacted RT for EKG.
--- NOTE | 2020-08-27 08:00 | NUR ---
Patient in sitting up in bed resting. Alert and oriented x 3. Assessment complete. Eccymosis noted to right flank. Patient has minimal drainage to incision under umbilicus. Other lap sites are CDI. Patient denies pain at this time. Denies further needs at this time.
[2020-08-27 08:38] LABS: HEMATOCRIT 24.2 % (42.0-52.0); HEMOGLOBIN 7.4 g/dl (13.5-18.0)
--- NOTE | 2020-08-27 08:56 | NUR ---
Dr. Mansfield in to see patient.
[2020-08-27 11:21] VITALS: BP 100/46; PULSE 81; TEMP 97.5
--- NOTE | 2020-08-27 13:35 | NUR ---
Patient sitting up in recliner. Denies further needs at this time.
--- NOTE | 2020-08-27 13:49 | NUR ---
Distribution Warehouse Manager faxed updates to Leslee at [facility] and was advised they can accept referral. SW will continue to follow.
--- NOTE | 2020-08-27 14:00 | NUR ---
Dr. Arroyo in to see patient.
[2020-08-27 14:42] LABS: HEMATOCRIT 24.7 % (42.0-52.0); HEMOGLOBIN 7.4 g/dl (13.5-18.0)
--- NOTE | 2020-08-27 14:50 | NUR ---
Patient to CT by wheelchair.
--- NOTE | 2020-08-27 16:00 | NUR ---
Patient in bed resting, denies further needs at this time. Assisted patient to call and change diet order.
[2020-08-27 16:27] VITALS: BP 107/52; PULSE 78; TEMP 98.1
--- NOTE | 2020-08-27 18:26 | NUR ---
Patient has done well throughout the day. Denies pain throughout the day, has been up to recliner through the day. Ambulates with stand by assist and walker, steady gait. Denies further needs at this time. Will report off to shiftman.
[2020-08-27 19:39] VITALS: BP 128/60; PULSE 82; TEMP 97.8
--- NOTE | 2020-08-27 21:10 | NUR ---
Pt. laying in bed at this time. Pt. is A&OX3, assessment complete. INT to lt. ac patent. Pt. denies pain or other needs, call light within reach.
[2020-08-28] VITALS: BP 108/55; PULSE 74; TEMP 98.8
--- NOTE | 2020-08-28 00:15 | NUR ---
This nurse saw the patient trying to get out of his bed. When asked where is he going, he said he needs to go to the bathroom. Gait belt utilized and assisted him with the help of his walker. He had loose bowel movement.We changed his briefs as well and assisted him back to bed. Bed alarm on. Call light within reach.
[2020-08-28 05:01] VITALS: BP 119/55; PULSE 89; TEMP 98.9
[2020-08-28 07:12] LABS: MEAN CELL VOLUME 84 fl (80.0-100.0); MEAN CORPUSCULAR HGB CONC 30 g/dl (33.0-37.0); MEAN PLATELET VOLUME 10.4 fl (7.4-10.4); PLATELET COUNT 260 K/mm3 (130-400); RED BLOOD COUNT 3.07 M/mm3 (4.20-5.60); REDCELL DISTRIBUTION WIDTH-CV 14.6 % (11.5-14.5)
[2020-08-28 07:13] LABS: HEMATOCRIT 25.7 % (42.0-52.0); HEMOGLOBIN 7.8 g/dl (13.5-18.0); MEAN CORPUSCULAR HEMOGLOBIN 25 pg (27.0-31.0)
[2020-08-28 07:22] LABS: BILIRUBIN,TOTAL 0.9 mg/dL (0.0-1.0); CALCIUM 8.4 mg/dL (8.4-10.2); POTASSIUM 3.3 mmol/L (3.4-5.0); TOTAL PROTEIN 5.8 gm/dL (6.4-8.2)
[2020-08-28 08:11] VITALS: BP 123/68; PULSE 82; TEMP 98.5
[2020-08-28 08:45] LABS: BAND 5 % (0-10); EOSINOPHIL 8 % (0-4); LYMPHOCYTE 5 % (20.0-51.0); METAMYELOCYTE 2 % (0-0); NEUTROPHILS 74 % (42.0-75.2); PLATELET ESTIMATE NORMAL (NORMAL)
[2020-08-28 11:50] VITALS: BP 134/62; PULSE 84; TEMP 98.4
--- NOTE | 2020-08-28 15:57 | NUR ---
Radiology Technologist collaborated with Tracy, IPR Director who advised at this time patient is too functional for IPR. SW met with patient to provide update. Patient states he is agreeable to go to [facility] for a skilled stay. KELBY contacted Leslee at [facility] to provide update and will continue to follow.
[2020-08-28 16:22] VITALS: BP 128/64; PULSE 86; TEMP 98.5
--- NOTE | 2020-08-28 18:30 | NUR ---
Patient sat up in the chair most the day. No complaints of pain or nausea. He walked in the hallways 4 times today. Twice with PT and twice staff. He is weak and it is a lot of work for him to get up and move. He has been having loose stools, he stated that is normal for him. He is upset that his visitor left and he can't get a different one this stay. He has been eating drinking well today. He was started on shakes and he tolerated them well. He is hoping to be discharged to [facility] but is will to go to where every he is accepted. No other changes at this time. Call light within reach. Patient is back in bed at this time. Bed alarm on.
--- NOTE | 2020-08-28 19:20 | NUR ---
Received report from Viktoriya. Seen patient asleep lying in bed. Call light within reach.
[2020-08-28 20:33] VITALS: BP 130/42; PULSE 84; TEMP 99.2
--- NOTE | 2020-08-28 21:20 | NUR ---
Rio nurse woke up patient to give his night meds and antibiotic. INT on left AC flushes well but noted to have some leaking. Repositioned his IV site, tightened the tube and changed the dressing.
[2020-08-29] VITALS (7 sets, daily range): BP systolic 112–149; BP diastolic 59–76; PULSE 61–90; TEMP 97.8–99.2
--- NOTE | 2020-08-29 00:15 | NUR ---
This nurse saw the patient trying to get out of bed. When asked where is he going he said he needs to go to the bathroom. Gait belt utilized and assisted him the the help of his walker. He had loose bowel movement. Briefs changed and assisted him back to bed. Bed alarm on. Call light within reach.
--- NOTE | 2020-08-29 03:30 | NUR ---
This nurse is about to give the Zosyn but during flushing of his INT it was leaking. Tried to reposition the INT but it was still leaking. Re-inserted another IV site on his right forearm, G22.
--- NOTE | 2020-08-29 06:31 | NUR ---
Patient had uneventful night. Last dose of Zosyn at 0930H. He had 2 times loose bowel movement. He denies pain. He's afebrile. Heart rate has been at 80's.
[2020-08-29 07:38] LABS: MEAN CELL VOLUME 84 fl (80.0-100.0); MEAN CORPUSCULAR HGB CONC 31 g/dl (33.0-37.0); MEAN PLATELET VOLUME 10.4 fl (7.4-10.4); PLATELET COUNT 242 K/mm3 (130-400); RED BLOOD COUNT 2.76 M/mm3 (4.20-5.60); REDCELL DISTRIBUTION WIDTH-CV 14.7 % (11.5-14.5)
[2020-08-29 07:44] LABS: ALBUMIN 2.5 gm/dL (3.5-5.0); CREATININE, serum 0.89 (0.66-1.25); POTASSIUM 3.2 mmol/L (3.4-5.0)
[2020-08-29 07:51] LABS: HEMATOCRIT 23.3 % (42.0-52.0); HEMOGLOBIN 7.2 g/dl (13.5-18.0); MEAN CORPUSCULAR HEMOGLOBIN 26 pg (27.0-31.0)
[2020-08-29 09:15] LABS: BAND 3 % (0-10); EOSINOPHIL 1 % (0-4); HYPOCHROMIA 2+; LYMPHOCYTE 9 % (20.0-51.0); METAMYELOCYTE 2 % (0-0); NEUTROPHILS 78 % (42.0-75.2); PLATELET ESTIMATE NORMAL (NORMAL)
--- NOTE | 2020-08-29 14:20 | NUR ---
Nurse Head collaborated with Hospitalist who advised plan is not for discharge today. SW requested an additional COVID test as patient's current negative will be out of the 72 hour window this afternoon. KELBY contacted Leslee at [facility] and faxed updates. KELBY to continue to follow.
--- NOTE | 2020-08-29 15:00 | NUR ---
Patient has been doing ok today. He walked with PT and sat up in the chair most the morning but wanted to back to bed. He continues to be weak today. Offered to help his shower but he did not think he could tolerate it. He stated his appetite is deacreased and he does not feel much like eating. His brother called, discussed with him how the patients care is. He wanted to speak with the doctor, notified Dr Mansfield. No other changes at this time. Call light within reach.
--- NOTE | 2020-08-29 19:30 | NUR ---
Patient stayed in bed most the afternoon. He did not want to eat supper. He would not get up to chair anymore this afternoon. He did eat a jello and drank some grape juice. No complaints of nausea. Alejandra LARA given phone number earlier this afternoon to update brother. No other changes at this time. Call light rosalino ventura.
[2020-08-29 19:41] LABS: COLLECTION METHOD CLEAN CATCH
[2020-08-29 19:49] LABS: BUDDING YEAST Present /hpf; PH 5 (5-8); SQUAMOUS EPITHELIAL 0-2 /hpf; URINE APPEARANCE Cloudy; URINE BACTERIA None Seen /hpf; URINE BILIRUBIN Negative (NEGATIVE); URINE BLOOD Negative (NEGATIVE); URINE COLOR Yellow; URINE GLUCOSE Negative (NEGATIVE); URINE KETONE Negative (NEGATIVE); URINE LEUKOCYTE ESTERASE Negative (NEGATIVE); URINE NITRATE Negative (NEGATIVE); URINE PROTEIN(semi-quant) 1+ (NEGATIVE); URINE UROBILINOGEN Negative (NEGATIVE)
--- NOTE | 2020-08-29 21:10 | NUR ---
Pt. laying in bed at this time. Pt. is A&OX3, assessment complete. INT to rt. wrist patent. Pt. denies pain. Abd. lap sites well approximated. Pt. denies further needs, call light within reach.
[2020-08-30 04:24] VITALS: BP 141/92; PULSE 87; TEMP 98.3
[2020-08-30 07:42] LABS: MEAN CELL VOLUME 85 fl (80.0-100.0); MEAN CORPUSCULAR HGB CONC 31 g/dl (33.0-37.0); MEAN PLATELET VOLUME 10.3 fl (7.4-10.4); PLATELET COUNT 331 K/mm3 (130-400); RED BLOOD COUNT 2.88 M/mm3 (4.20-5.60); REDCELL DISTRIBUTION WIDTH-CV 14.4 % (11.5-14.5)
[2020-08-30 07:49] LABS: CALCIUM 8.5 mg/dL (8.4-10.2); CREATININE, serum 0.86 (0.66-1.25); POTASSIUM 3.4 mmol/L (3.4-5.0)
[2020-08-30 07:58] LABS: HEMATOCRIT 24.4 % (42.0-52.0); HEMOGLOBIN 7.5 g/dl (13.5-18.0); MEAN CORPUSCULAR HEMOGLOBIN 26 pg (27.0-31.0)
[2020-08-30 08:50] VITALS: BP 115/58; PULSE 80; TEMP 98.3
[2020-08-30 09:34] LABS: BAND 1 % (0-10); EOSINOPHIL 2 % (0-4); HYPOCHROMIA 2+; LYMPHOCYTE 14 % (20.0-51.0); METAMYELOCYTE 2 % (0-0); NEUTROPHILS 80 % (42.0-75.2); NUCLEATED RED BLOOD CELL 1 (0-6); PLATELET ESTIMATE NORMAL (NORMAL)
[2020-08-30] MEDS ORDERED: CORDARONE200 MG/TAB PO ×2 (10:48→15:14)
[2020-08-30 12:12] VITALS: BP 105/54; PULSE 72; TEMP 98.8
--- NOTE | 2020-08-30 16:06 | NUR ---
Test Operator contacted Leslee at [facility] and faxed clinical updates including second negative COVID. Lselee advised they are concerned about patient's elevated white blood cell count. Leslee requested Hospitalist contact Dr. Li. KELBY provided contact information for Dr. Li to Dr. Sanabria who made call. Plan is for patient's labs to be rechecked in the morning. KELBY spoke with patient to provide update. KELBY also contacted patient's brother, Volodymyr to provide update. SW to continue to follow.
[2020-08-30 16:41] VITALS: BP 148/67; PULSE 84; TEMP 98.2
--- NOTE | 2020-08-30 18:24 | NUR ---
Patient has been doing well. Continues to be weak. He was very focused on getting some papers his friend delivered. His delivered them late this afternoon and he has been worried about them since this morning. He did take his potassium better today. This morning we tried IV but it burned too much so we switched it back to oral. No complaints of pain and nausea. Patient brother was updated about his status today. No other changes at this time. Call light within reach.
[2020-08-30 19:26] VITALS: BP 121/54; PULSE 93; TEMP 99.1
[2020-08-30 23:29] VITALS: BP 139/73; PULSE 89; TEMP 98.6
[2020-08-31 04:00] VITALS: BP 120/64; PULSE 72; TEMP 98.4
--- NOTE | 2020-08-31 06:55 | NUR ---
report given to ALEXIA Amato.
--- NOTE | 2020-08-31 08:00 | NUR ---
Patient in bed resting. Alert and oriented x 3. Assessment complete. Eccymosis noted to right and left flank as well as scrotum. Edema to BLE +2 noted. Patient states his right flank pain is worsening as days go by. Assisted patient to reposition to left side. States he is having loose stools. Denies further needs at this time.
[2020-08-31 08:09] LABS: MEAN CELL VOLUME 84 fl (80.0-100.0); MEAN CORPUSCULAR HGB CONC 31 g/dl (33.0-37.0); MEAN PLATELET VOLUME 10.4 fl (7.4-10.4); PLATELET COUNT 309 K/mm3 (130-400); RED BLOOD COUNT 2.88 M/mm3 (4.20-5.60); REDCELL DISTRIBUTION WIDTH-CV 14.6 % (11.5-14.5)
[2020-08-31 08:16] LABS: HEMATOCRIT 24.2 % (42.0-52.0); HEMOGLOBIN 7.5 g/dl (13.5-18.0); MEAN CORPUSCULAR HEMOGLOBIN 26 pg (27.0-31.0)
[2020-08-31 08:53] VITALS: BP 100/50; PULSE 88; TEMP 99.3
--- NOTE | 2020-08-31 10:00 | NUR ---
Patient sitting up in recliner.
[2020-08-31 11:00] VITALS: BP 113/64; PULSE 105; TEMP 98.9
[2020-08-31 11:38] LABS: BAND 4 % (0-10); EOSINOPHIL 1 % (0-4); LYMPHOCYTE 4 % (20.0-51.0); NEUTROPHILS 86 % (42.0-75.2)
[2020-08-31 11:39] LABS: PLATELET ESTIMATE NORMAL (NORMAL)
[2020-08-31 11:40] LABS: HYPOCHROMIA 3+
--- NOTE | 2020-08-31 13:26 | NUR ---
Patient incontinent of urine, pericare provided.
[2020-08-31 16:58] VITALS: BP 110/55; PULSE 86; TEMP 98.3
--- NOTE | 2020-08-31 18:34 | NUR ---
Patient has done well throughout the day, Minimal needs. Requested pain medicaiton for right flank pain this afternoon; medications given per orders. Ice provided for flank pain as well. Denies further needs at this time. Will report off to wrecker operator.
[2020-08-31 19:22] VITALS: BP 120/55; PULSE 85; TEMP 98.6
[2020-09-01] VITALS: BP 104/50; PULSE 91; TEMP 97.8
[2020-09-01 04:00] VITALS: BP 119/60; PULSE 87; TEMP 99.1
--- NOTE | 2020-09-01 06:21 | NUR ---
RESTING QUIETLY MOST OF DESIGN TECHNOLOGY PROFESSOR. NORCO ADMIN. AT BEGINNING OF SHIFT CONTROLLED HIS RT FLANK PAIN.
[2020-09-01 07:43] LABS: MEAN CELL VOLUME 83 fl (80.0-100.0); MEAN CORPUSCULAR HGB CONC 31 g/dl (33.0-37.0); MEAN PLATELET VOLUME 9.8 fl (7.4-10.4); PLATELET COUNT 339 K/mm3 (130-400); RED BLOOD COUNT 2.83 M/mm3 (4.20-5.60); REDCELL DISTRIBUTION WIDTH-CV 14.6 % (11.5-14.5)
[2020-09-01 07:45] LABS: HEMATOCRIT 23.4 % (42.0-52.0); HEMOGLOBIN 7.3 g/dl (13.5-18.0); MEAN CORPUSCULAR HEMOGLOBIN 26 pg (27.0-31.0)
[2020-09-01 08:00] VITALS: BP 97/49; PULSE 56; TEMP 98.8
[2020-09-01 11:45] VITALS: BP 99/57; PULSE 86; TEMP 98.6
[2020-09-01 16:41] VITALS: BP 130/58; PULSE 90; TEMP 99
--- NOTE | 2020-09-01 17:00 | NUR ---
PATIENT SITTING UP IN BEDSIDE CHAIR.
[2020-09-01 19:46] VITALS: BP 121/51; PULSE 54; TEMP 99
--- NOTE | 2020-09-01 20:00 | NUR ---
Pt was on recliner while this nurse went to the pt room for bedside handover. Helped pt to use the bedside commond and back to bed. Will keep monitoring.
[2020-09-02 00:12] VITALS: BP 119/56; PULSE 85; TEMP 98.8
--- NOTE | 2020-09-02 01:13 | NUR ---
Pt assessment completed and charted, alert, oriented. Meds provided as per JAN, tolerated well. Pt is settled on his bed, call light is on reach. No further needs at this time.
[2020-09-02 04:43] VITALS: BP 128/58; PULSE 87; TEMP 98
--- NOTE | 2020-09-02 05:26 | NUR ---
Pt had an uneventful night, slept through out the night. No further needs at this time.
[2020-09-02 07:26] VITALS: BP 118/56; PULSE 84; TEMP 98.1
--- NOTE | 2020-09-02 08:00 | NUR ---
PATIENT IS A&O. VSS. PATIENT C/O RIGHT SIDED ABD PAIN. GAVE PRN NORCO, ONE TAB WITH AM MEDS. ABD IS DISTENDED WITH HYPO BOWL SOUNDS. NO C/O N/V. PATIENT REPORTS HE IS PASSING GAS AND HAD A BM YESTERDAY. ABD LAP SITES CD&I WITH GLUED CLOSURE. ORAL POTASSIUM GIVEN PER PROTOCOL. LEFT AC IV TO INT. COVID TEST PENDING. PATIENT HOPING TO DISCHARGE TO [facility]. HEAD TO TOE ASSESSMENT COMPLETE. AM MEDS GIVEN. CALL LIGHT IN REACH.
[2020-09-02 09:45] LABS: MEAN CELL VOLUME 83 fl (80.0-100.0); MEAN CORPUSCULAR HGB CONC 31 g/dl (33.0-37.0); MEAN PLATELET VOLUME 9.8 fl (7.4-10.4); PLATELET COUNT 383 K/mm3 (130-400); RED BLOOD COUNT 3.18 M/mm3 (4.20-5.60); REDCELL DISTRIBUTION WIDTH-CV 14.6 % (11.5-14.5)
[2020-09-02 09:56] LABS: HEMATOCRIT 26.5 % (42.0-52.0); HEMOGLOBIN 8.1 g/dl (13.5-18.0); MEAN CORPUSCULAR HEMOGLOBIN 25 pg (27.0-31.0)
[2020-09-02 09:58] LABS: CALCIUM 8.2 mg/dL (8.4-10.2); CREATININE, serum 1.02 (0.66-1.25); POTASSIUM 3.7 mmol/L (3.4-5.0)
--- NOTE | 2020-09-02 10:00 | NUR ---
LAB CALLED WITH CRITICAL WBC OF 23.4, HOSPITALIST AND SURGEON NOTIFIED.
[2020-09-02 10:28] LABS: BAND 9 % (0-10); EOSINOPHIL 1 % (0-4); LYMPHOCYTE 8 % (20.0-51.0); METAMYELOCYTE 3 % (0-0); NEUTROPHILS 75 % (42.0-75.2); PLATELET ESTIMATE NORMAL (NORMAL); SCHISTOCYTES 1+; TOXIC GRANULATION PRESENT
[2020-09-02 11:20] VITALS: BP 101/50; PULSE 77; TEMP 98.6
--- NOTE | 2020-09-02 14:23 | NUR ---
The patient's WBC continues to elevate. KELBY notified and faxed updates to Amara at [facility]. KELBY to continue to follow.
[2020-09-02 15:30] VITALS: BP 111/55; PULSE 79; TEMP 98.3
--- NOTE | 2020-09-02 15:30 | NUR ---
REPORT GIVEN TO ALEXIA LAM.
--- NOTE | 2020-09-02 15:45 | NUR ---
Dr. Maguire in to see patient.
--- NOTE | 2020-09-02 18:50 | NUR ---
Patient has done well this afternoon. Up to recliner, continues to states pain to right flak. Medications given per orders. Denies further needs at this time. Will report off to sap technical developer.
[2020-09-02 19:47] VITALS: BP 116/49; PULSE 82; TEMP 98.6
--- NOTE | 2020-09-02 20:26 | NUR ---
PT SITTING IN CHAIR, FRAUSTRATED ABOUT RECOVERY, C/O PAIN IN ABD ONLY WHEN MOVING SO DENIES PAIN AT THIS TIME. PM MEDS GIVEN BUT PT REQESTS HIS SLEEP MEDS A BIT LATER. RECIEVED IN REPORT AND FROM PT THAT HE HAS BEEN HAVING LOOSE STOOLS, THUS WILL CHART AGAINSTSTOOL SOFTENER. WILL CONTINUE TO MONITOR AND UPDATE PROVIDERS NEEDED.
[2020-09-03] VITALS (7 sets, daily range): BP systolic 100–132; BP diastolic 50–64; PULSE 68–84; TEMP 97.4–99.1
--- NOTE | 2020-09-03 04:41 | NUR ---
pT STATES HE IS CONCERNED THAT HIS FRIEND HAS BEEN DROPPING MAIL OFF AT THE FRONT FOR HIM AND NO ONE HAS RETRIEVED IT, THIS RN CALLED THE FROM DESK AND THEY SAID THEY WILL CALL ME BACK WHEN THEY KNOW MORE. WILL F/U.
[2020-09-03 07:21] LABS: MEAN CELL VOLUME 84 fl (80.0-100.0); MEAN CORPUSCULAR HGB CONC 31 g/dl (33.0-37.0); MEAN PLATELET VOLUME 10.2 fl (7.4-10.4); PLATELET COUNT 377 K/mm3 (130-400); RED BLOOD COUNT 2.66 M/mm3 (4.20-5.60); REDCELL DISTRIBUTION WIDTH-CV 14.6 % (11.5-14.5)
[2020-09-03 07:29] LABS: HEMATOCRIT 22.4 % (42.0-52.0); HEMOGLOBIN 6.9 g/dl (13.5-18.0); MEAN CORPUSCULAR HEMOGLOBIN 26 pg (27.0-31.0)
[2020-09-03 07:33] LABS: ALBUMIN 2.6 gm/dL (3.5-5.0); BILIRUBIN,TOTAL 1.8 mg/dL (0.0-1.0); CALCIUM 7.9 mg/dL (8.4-10.2); CREATININE, serum 0.92 (0.66-1.25); POTASSIUM 4.2 mmol/L (3.4-5.0); TOTAL PROTEIN 5.5 gm/dL (6.4-8.2)
--- NOTE | 2020-09-03 07:37 | NUR ---
Notified Aixa LARA of [facility].
--- NOTE | 2020-09-03 07:59 | NUR ---
Patient up to restroom with x1 assist. Had mucusy BM. Bed bath provided to patient. Patient up to recliner. Denies further needs at this time.
[2020-09-03 08:28] LABS: BAND 7 % (0-10); EOSINOPHIL 1 % (0-4); LYMPHOCYTE 8 % (20.0-51.0); METAMYELOCYTE 4 % (0-0); NEUTROPHILS 72 % (42.0-75.2); PLATELET ESTIMATE NORMAL (NORMAL)
[2020-09-03 08:30] LABS: ANISOCYTOSIS 2+
--- NOTE | 2020-09-03 08:30 | NUR ---
Patient sitting up in recliner eating breakfast. Alert and oriented x 3. Assessment complete. Eccymosis to right flank, left flank, right hip, and scrotum with multiple stages of healing. Abdomen firm, bowel sounds are hypoactive. Edema to BLE +2, also has generalized edema +1. Denies further needs at this time.
[2020-09-03 08:32] LABS: SCHISTOCYTES 1+
[2020-09-03 09:22] LABS: HEMATOCRIT 26.5 % (42.0-52.0); HEMOGLOBIN 8.1 g/dl (13.5-18.0)
--- NOTE | 2020-09-03 10:29 | NUR ---
Patient showered independently, denies pain or further needs at this time. Tele placed back on patient.
--- NOTE | 2020-09-03 10:32 | NUR ---
Hospitalist in to see patient
--- NOTE | 2020-09-03 13:08 | NUR ---
KELBY staffed with the hospitalist. The patient may able to d/c in the next couple of days. SW met with the patient to follow up and review d/c plan. The patient states that he does not feel very perky today. He confirms plan to go to [facility] for a skilled stay. KELBY contacted and faxed updates to Amara at [facility].
--- NOTE | 2020-09-03 18:18 | NUR ---
Patient has done well throughout the day, states he feels a little bit better than yesterday, not having as much pain. Medications given throughout the day per orders. Patient sat up in recliner for all meals. Tele discontinued per orders. Denies further needs at this time. Will report off to stacker straightener.
--- NOTE | 2020-09-03 21:01 | NUR ---
Pt assessment completed and documented. Pt resting in bed at this time watching television. Pt alert and oriented x4. Pt denies pain at this time. States that the only time he is in pain is when someone touches his RLQ or when he is moving. Pt requesting PRN tylenol at this time stating that he feels as if the PRN norco he has been getting has not been helping his pain. INT to right wrist CDI. Pt denies any other needs at this time. Call light within reach. Bed alarm on. Will continue to monitor.
[2020-09-04] VITALS (9 sets, daily range): BP systolic 110–133; BP diastolic 48–66; PULSE 62–87; TEMP 98–99.1
--- NOTE | 2020-09-04 05:23 | NUR ---
Pt has had two mucus consistency bowel movements overnight. Both BMs were very clear in color. Pt also passing a lot of gas this AM with some incontinence of bowel. Complaints of intermittent RLQ pain. PRN tylenol given per orders. Pt sleeping earlier this morning and O2 was found at 86% on room air. Pt placed on 1.5L O2 via nasal cannula for remainder of the night. INT changed this AM due to leaking. Zosyn infusing per orders new INT to right wrist. Pt denies any needs/concerns at this time. Call light within reach. Bed alarm on. Will continue to monitor
[2020-09-04 07:00] LABS: CALCIUM 7.9 mg/dL (8.4-10.2); CREATININE, serum 0.96 (0.66-1.25); POTASSIUM 3.8 mmol/L (3.4-5.0)
[2020-09-04 07:05] LABS: MEAN CELL VOLUME 84 fl (80.0-100.0); MEAN CORPUSCULAR HGB CONC 31 g/dl (33.0-37.0); MEAN PLATELET VOLUME 9.3 fl (7.4-10.4); PLATELET COUNT 456 K/mm3 (130-400); RED BLOOD COUNT 2.65 M/mm3 (4.20-5.60); REDCELL DISTRIBUTION WIDTH-CV 14.9 % (11.5-14.5)
[2020-09-04 07:08] LABS: HEMATOCRIT 22.3 % (42.0-52.0); MEAN CORPUSCULAR HEMOGLOBIN 26 pg (27.0-31.0)
[2020-09-04 07:10] LABS: HEMOGLOBIN 6.8 g/dl (13.5-18.0)
--- NOTE | 2020-09-04 07:14 | NUR ---
Notified Aixa of critical hgb of 6.8. She is going to call lab and follow up.
[2020-09-04 08:08] LABS: HEMATOCRIT 22.8 % (42.0-52.0)
[2020-09-04 09:07] LABS: BAND 10 % (0-10); BASOPHIL 1 % (0-2); EOSINOPHIL 1 % (0-4); LYMPHOCYTE 6 % (20.0-51.0); METAMYELOCYTE 1 % (0-0); NEUTROPHILS 77 % (42.0-75.2); PLATELET ESTIMATE INCREASED (NORMAL)
[2020-09-04 09:08] LABS: MICROCYTOSIS 1+
--- NOTE | 2020-09-04 09:40 | NUR ---
Updated family on patient status.
--- NOTE | 2020-09-04 10:07 | NUR ---
Patient not yet ready for blood transfuion, reports being nervous. He has never had blood. Hospitalist to see patient & discussed this more extensive with patient. Will continue to alta.
--- NOTE | 2020-09-04 10:09 | NUR ---
Patient resting in bed. Got up to use the bathroom and had complaints of feeling down. Gave patient morning medications with a pain pill. He sat up in the chair and ate his breakfast.
[2020-09-04 11:39] LABS: IRON,SERUM 26 ug/dL (35-150)
[2020-09-04 11:48] LABS: TOTAL IRON BINDING CAPACITY 224 ug/dL (261-462)
--- NOTE | 2020-09-04 12:00 | NUR ---
KELBY attended clinical rounds. The patient may be able to d/c tomorrow, 09/05. A repeat COVID test was ordered. KELBY notified and faxed updates to Amara at [facility]. KELBY contacted and updated the patient's brother, Volodymyr. Volodymyr is in agreement with the patient going to [facility] for a skilled stay. He had no other questions or concerns for KELBY at this time.
--- NOTE | 2020-09-04 12:44 | NUR ---
rounded and explained blood transfusion. Patient felt more comfortable with transfusion. Started blood transfusion following protocol. Patient resting comfortably in chair.
--- NOTE | 2020-09-04 16:38 | NUR ---
KELBY met with the patient to review d/c plan of possible discharge tomorrow to [facility]. The patient states that he is in agreement to the plan. He states that he is ready to get some rehab, so that he can then return home. KELBY presented and read the IM form outloud to the patient. The patient verbalized understanding and gave KELBY approval to sign the form on his behalf. KELBY provided him with a copy.
--- NOTE | 2020-09-04 18:30 | NUR ---
Patient resting in bed. He ate mac & cheese for dinner. He also had a milkshake this afternoon & tolerated well. Patient denies the need for pain medication. Patient resting in bed & voiding frequently after lasix when his blood tranfusion completed which he tolerated well. Patietn hopeful lto get a good nights rest.
--- NOTE | 2020-09-04 20:00 | NUR ---
Pt. sitting up in bed at this time. Pt. is A&OX3, assessment complete. INT to rt. wrist patent. Pt. reports pain at a 2 on pain scale at this time. Pt. does not want evening meds til 2330. Will give at that time. Pt. denies further needs, call light within [facility].
[2020-09-05 00:10] VITALS: BP 133/54; PULSE 82; TEMP 98.1
[2020-09-05 04:20] VITALS: BP 109/56; PULSE 80; TEMP 97.6
[2020-09-05 06:29] LABS: MEAN CELL VOLUME 84 fl (80.0-100.0); MEAN CORPUSCULAR HGB CONC 31 g/dl (33.0-37.0); MEAN PLATELET VOLUME 9.2 fl (7.4-10.4); PLATELET COUNT 434 K/mm3 (130-400); RED BLOOD COUNT 2.99 M/mm3 (4.20-5.60); REDCELL DISTRIBUTION WIDTH-CV 14.9 % (11.5-14.5)
[2020-09-05 06:41] LABS: HEMATOCRIT 25.1 % (42.0-52.0); HEMOGLOBIN 7.8 g/dl (13.5-18.0); MEAN CORPUSCULAR HEMOGLOBIN 26 pg (27.0-31.0)
[2020-09-05 06:43] LABS: ALBUMIN 2.5 gm/dL (3.5-5.0); BILIRUBIN,TOTAL 1.4 mg/dL (0.0-1.0); CALCIUM 7.9 mg/dL (8.4-10.2); CREATININE, serum 0.99 (0.66-1.25); POTASSIUM 3.8 mmol/L (3.4-5.0); TOTAL PROTEIN 5.3 gm/dL (6.4-8.2)
[2020-09-05 07:22] VITALS: BP 111/53; PULSE 87; TEMP 98.3
[2020-09-05 07:49] LABS: BAND 7 % (0-10); EOSINOPHIL 3 % (0-4); HYPOCHROMIA 2+; LYMPHOCYTE 7 % (20.0-51.0); METAMYELOCYTE 1 % (0-0); MYELOCYTE 1 % (0-0); NEUTROPHILS 72 % (42.0-75.2); PLATELET ESTIMATE INCREASED (NORMAL)
--- NOTE | 2020-09-05 09:43 | NUR ---
Patient tolerated breakfast well. Now up to chair. He has no complaints of pain and denies the need for pain medication.
--- NOTE | 2020-09-05 10:18 | NUR ---
Dr Ferro called, updated on patient status.
[2020-09-05 11:51] VITALS: BP 128/60; PULSE 88; TEMP 98.3
--- NOTE | 2020-09-05 14:26 | NUR ---
The patient is to tentatively d/c tomorrow, 09/06. KELBY notified and faxed updates and the patient's COVID results to Amara at [facility]. KELBY contacted and updated the patient's brother, Volodymyr. Volodymyr is in agreement with the patient going to [facility]. SW to continue to follow.
[2020-09-05 15:42] VITALS: BP 125/59; PULSE 80; TEMP 98.5
[2020-09-05 17:27] LABS: HEMATOCRIT 27.6 % (42.0-52.0); HEMOGLOBIN 8.5 g/dl (13.5-18.0)
[2020-09-05 19:50] VITALS: BP 125/62; PULSE 83; TEMP 98
[2020-09-06 00:01] VITALS: BP 128/61; PULSE 82; TEMP 98.3
[2020-09-06 04:41] VITALS: BP 117/58; PULSE 82; TEMP 98.1
[2020-09-06 06:23] LABS: MEAN CELL VOLUME 85 fl (80.0-100.0); MEAN CORPUSCULAR HGB CONC 31 g/dl (33.0-37.0); MEAN PLATELET VOLUME 9.2 fl (7.4-10.4); PLATELET COUNT 462 K/mm3 (130-400); RED BLOOD COUNT 3.11 M/mm3 (4.20-5.60); REDCELL DISTRIBUTION WIDTH-CV 15.1 % (11.5-14.5)
[2020-09-06 06:31] LABS: CALCIUM 8.2 mg/dL (8.4-10.2); CREATININE, serum 0.91 (0.66-1.25); POTASSIUM 3.6 mmol/L (3.4-5.0)
[2020-09-06 06:43] LABS: HEMATOCRIT 26.3 % (42.0-52.0); HEMOGLOBIN 8.1 g/dl (13.5-18.0); MEAN CORPUSCULAR HEMOGLOBIN 26 pg (27.0-31.0)
[2020-09-06 07:11] LABS: ANISOCYTOSIS 1+; EOSINOPHIL 3 % (0-4); HYPOCHROMIA 3+; LYMPHOCYTE 6 % (20.0-51.0); NEUTROPHILS 82 % (42.0-75.2); PLATELET ESTIMATE INCREASED (NORMAL)
--- NOTE | 2020-09-06 07:27 | NUR ---
Pt currently sitting up in his chair. Pt had a very good night. Pt slept well during the night. Pt did request to have his sleeping medication later and this was given at that time. Pt has had no complaints of pain and requested to be bothered as little as possible. I did inform him that we would do our best to only come in as needed. He has his call light within reach.
[2020-09-06 07:48] VITALS: BP 138/67; PULSE 85; TEMP 97.9
--- NOTE | 2020-09-06 10:12 | NUR ---
Patient up to chair. Patient states that pain is tolerable. IV began leaking when flushing it, so it was discontinued. We did not start another IV per doctors orders.
[2020-09-06] MEDS ORDERED: FLAGYL500 MG PO (12:25)
[2020-09-06] MEDS ORDERED: CEFTIN500 MG PO (12:25)
[2020-09-06] MEDS ORDERED: LASIX 20MG TABL20 MG PO (12:30)
[2020-09-06 12:45] VITALS: BP 129/59; PULSE 82; TEMP 98.1
[2020-09-06 13:23] VITALS: BP 129/59; PULSE 82; TEMP 98.1
--- NOTE | 2020-09-06 14:02 | NUR ---
[facility] collaborated with Hospitalist and patient is ready to be discharged. KELBY contacted [facility] who after speaking with Dr. Li, advised they can accept today. KELBY faxed clinical updates and discharge orders to [facility] then set transport time for 1430. KELBY met with patient and provided transport time. KELBY also contacted patient's brother, Volodymyr to provide transport time. Both patient and Volodymyr are in agreement with discharge plan. No additional needs at this time.
--- NOTE | 2020-09-06 14:59 | NUR ---
Patient ready for discharge. Assisted to get dressed, he shaved. Patient sent with all belongings, report called to saeid martinez and all questions answered.
== END 2020-09-06 15:01 | DRG 417 ==
LOC: COL.ER 07:08 → SURG 09:17
PROVIDERS: Emergency Medicine; Hospitalist; Physician Assistant; Student in an Organized Health Care Education/Training Program; Surgery; ADMIT Internal Medicine
PROC: 8E0W4CZ Robotic Assisted Procedure of Trunk Region, Percutaneous Endoscopic Approach (ICD-10-PCS; 2020-08-25)
PROC: 0FT44ZZ Resection of Gallbladder, Percutaneous Endoscopic Approach (ICD-10-PCS; principal; 2020-08-25 12:00)
DX: K85.10 Biliary acute pancreatitis without necrosis or infection (principal); J96.01 Acute respiratory failure with hypoxia; L76.32 Postprocedural hematoma of skin and subcutaneous tissue following other procedure; N17.9 Acute kidney failure, unspecified; D47.3 Essential (hemorrhagic) thrombocythemia; D64.9 Anemia, unspecified; E87.6 Hypokalemia; R94.31 Abnormal electrocardiogram [ECG] [EKG]; I10 Essential (primary) hypertension; I48.91 Unspecified atrial fibrillation; N40.1 Benign prostatic hyperplasia with lower urinary tract symptoms; N32.81 Overactive bladder; R73.03 Prediabetes; E78.5 Hyperlipidemia, unspecified; G47.00 Insomnia, unspecified; Z79.01 Long term (current) use of anticoagulants; Z95.0 Presence of cardiac pacemaker; Y83.8 Other surgical procedures as the cause of abnormal reaction of the patient, or of later complication, without mention of misadventure at the time of the procedure
CPT/HCPCS: 99222-AI; 99231-AI; 99232-AI; 99233-AI; A9284; C9113; J0348; J0696; J1100; J1885; J1940; J2270; J2405; J2543; J2704; J3010; J3480; J7030; J7050; J7120; P9016; Q9967